=== PATIENT | male | born 1965 | race Two or more races ===

== ENCOUNTER 2025-05-13 18:27 | Emergency (ER) | payer MEDICAID, OTHER ==
[~2025-05-13] VITALS: Ht 175.3 cm; Wt 100.0 kg
[2025-05-13 18:39] VITALS: BP 136/67; PULSE 102; RESP 16; TEMP 98.2; O2SAT 95
--- NOTE | 2025-05-13 19:04 | DVH ---
CHEST RADIOGRAPH Indication: extremities swelling Technique: Single frontal view of the chest was obtained Comparison: No prior studies for comparison FINDINGS: Lines and Tubes: None Lungs: No focal consolidation. Pleura: No effusion. No pneumothorax. Cardiomediastinal contours: Unremarkable Bones: No acute osseous abnormality. IMPRESSION: 1. No acute cardiopulmonary disease. 2. No prior studies for comparison
--- NOTE | 2025-05-13 19:09 | ED.PDOC ---
HPI Comments lea: b/l leg swelling. etoh 60 y/o homeless M is [id number] ambulance with c/c of bilateral feet and leg swelling. Patient is a poor historian. He has had symptoms for over the past 3 months. Patient has associated difficulty walking. 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 Patient does not take any medications, currently, or remembers his entire medical history. Patient denied having any shortness of breath, chest pain, leg or feet pain, or further acute symptoms. HPI: Poor Historian. 60-year-old male presents to emergency depart for evaluation of bilateral feet/leg swelling for the last three months. Patient states the swelling is making it difficult for him to walk. Patient is homeless. Patient states having history of hepatitis-C and some type of liver kidney failure from alcohol abuse. He does not know any of his medical conditions and does not take any other medications. Patient is brought in by ambulance from the street. Initial vital signs was blood pressure 142/79, heart rate 106, respirations 20, pulse ox 96% room air. EMS stated that he told him that the swelling has been going on for at least two years. Past Medical History: Alcohol abuse, Hepatitis C, Unspecified kidney/liver disease Past Surgical History: Craniotomy for head injury REVIEW OF SYSTEMS: CONSTITUTIONAL: Denies acute: fever, diaphoresis, chills, generalized weakness. HEAD: Denies acute: headache, photophobia Eyes: Denies acute: Double vision, vision loss, eye pain, eye discharge. EARS: Denies acute: tinnitus, hearing loss, ear discharge, ear pain, THROAT: Denies acute: sore throat, swelling, difficulty swallowing , pain with swallowing, change in voice. NECK: Denies acute: neck pain, neck swelling, stiff neck. HEART: Denies acute : chest pain, palpitations, LUNGS: Denies acute: SOB, wheezing, cough, hemoptysis ABDOMEN: Denies acute: abdominal pain, Nausea, Vomiting, diarrhea, melena , hematemesis, hematochezia SKIN: Denies acute: rash, redness, lesions, itchiness. EXTREMITIES: Denies acute: calf pain, numbness, tingling, weakness, Denies acute: Low back pain. Neuro: Denies acute: focal neurological deficit, motor or sensory focal neurological deficit, tremors, seizure like activity, confusion, dizziness, change in mental status, loss of bowel or bladder function, cauda equina like symptoms. : Denies acute: dysuria, hematuria, flank pain, increase in urinary frequency. PSYCH: Denies acute: hallucination, suicidal ideation, homicidal ideation. PHYSICAL EXAM: General: -----mild---acute distress, awake and alert. Head: normocephalic, atraumatic. Neck: supple, trachea is midline, no swelling. Throat: Normal phonation. Eyes:, no erythema, no purulent discharge, no proptosis, no icterus. Heart: regular tachycardic, no significant murmur appreciated. Lungs: no apparent respiratory distress, Able to speak in full sentences. No wheezing, no rhonchi, no crackles. No stridors Clear to auscultation bilaterally. Abdomen: non tender to palpation, non distended, soft, no guarding, no rebound, + bowel sounds. Obese Neuro: Awake, Alert, oriented to name, self, situation, follows commands GCS=15. Speech is normal. Skin: no petechia, no purpura, no cyanosis, non-pale, not jaundice. Lower extremities: --2/4 b/l- Pitting edema no deformity, no focal swelling, mild b/l calf TTP. Makes eye contact. moves all four extremities. Face: no apparent facial droop. Pedal pulses are palpable. ED COURSE: DISCLAIMER: This medical document was created using an electronic medical record system with voice recognition software and computerized dictation system. Although this document has been carefully reviewed, there might still be some phonetic and typographical errors. Occasional wrong-word or "sound-alike" substitutions may have occurred due to the inherent limitations of voice recognition software. These areas are purely typographical due to imperfections of the software programs and do not reflect any compromise in the patient's medical care. Please read the chart carefully and recognize, using context, where these substitutions have occurred. Chief Complaint: Lower Extremity Time Seen by MD: 18:30 Reviewed Notes: Nurses Notes, Medications, Allergies Allergies: Coded Allergies: NO KNOWN ALLERGIES (Unverified , 05/13/25) Home Meds Active Scripts Furosemide (Lasix) 20 Mg Tb, 20 MG GT DAILY for 7 Days, #7 TAB Prov:HARDEEP PETERSON DO 05/13/25 Information Source: Patient Mode of Arrival: EMS Severity: Moderate Timing: Hours Duration: Since onset Prehospital treatment: None Social History Smoker: Non-Smoker Alcohol: Denies ETOH Use Drugs: Denies Drug Use Lives In: Home Was a procedure done? Was a procedure done?: No CP Differential Dx Differential Diagnosis: N/A Comment Leg swelling Ddx include but not limited to DVT, ischemic limb, pitting edema, volume overload, CHF, cellulitis, hematoma, compartment syndrome, dependent edema, venous stasis. Necrotizing fasciitis, abscess, infestation. X-Ray, Labs, Meds, VS Vital Signs Date Time Temp Pulse Resp B/P (MAP) Pulse Ox O2 Delivery O2 Flow Rate FiO2 05/14/25 01:59 Room Air* 0 21 05/13/25 18:39 98.2 102 16 136/67 95 98.2 Lab Test 05/13/25 21:02 05/13/25 18:59 Range/Units Lactic Acid Level 2.3 *H 2.8 *H 0.4-2.0 mmol/L White Blood Count 6.2 4.4-10.8 10^3/uL Red Blood Count 4.21 L 4.5-5.90 10^6/uL Hemoglobin 10.0 L 13.5-17.5 g/dL Hematocrit 31.1 L 41.0-53.0 % Mean Corpuscular Volume 73.9 L 80.0-100.0 fL Mean Corpuscular Hemoglobin 23.7 L 28.0-32.0 pg Mean Corpuscular Hemoglobin Concent 32.1 32.0-36.0 g/dL Red Cell Distribution Width 19.0 H 11.8-14.3 % Platelet Count 210 140-450 10^3/uL Mean Platelet Volume 7.2 6.9-10.8 fL Neutrophils (%) (Auto) 58.6 37.0-80.0 % Lymphocytes (%) (Auto) 25.7 10.0-50.0 % Monocytes (%) (Auto) 10.2 0.0-12.0 % Eosinophils (%) (Auto) 4.7 0.0-7.0 % Basophils (%) (Auto) 0.8 0.0-2.0 % Neutrophils # (Auto) 3.6 1.6-8.6 10 ^3/uL Lymphocytes # (Auto) 1.6 0.4-5.4 10 ^3/uL Monocytes # (Auto) 0.6 0-1.3 10 ^3/uL Eosinophils # (Auto) 0.3 0-0.8 10 ^3/uL Basophils # (Auto) 0.1 0-0.2 10 ^3/uL Nucleated Red Blood Cells 0.0 % Sodium Level 145 136-145 mmol/L Potassium Level 3.7 3.5-5.1 mmol/L Chloride Level 110 H 98-107 mmol/L Carbon Dioxide Level 23 20-31 mmol/L Anion Gap 12 5-15 Blood Urea Nitrogen 8 L 9-23 mg/dL Creatinine 0.83 0.700-1.30 mg/dL Glomerular Filtration Rate Calc 100 >90 mL/min BUN/Creatinine Ratio 9.6 L 10.0-20.0 Serum Glucose 190 H 74-106 mg/dL Calcium Level 7.8 L 8.7-10.4 mg/dL Total Bilirubin 0.4 0.2-1.0 mg/dL Aspartate Amino Transferase (AST) 78 H 13-40 U/L Alanine Aminotransferase (ALT) 62 H 7-40 U/L Alkaline Phosphatase 286 H 46-116 U/L Troponin I High Sensitivity 11 </=54 ng/L C-Reactive Protein High Sensitivity 0.19 <1.0 mg/dL B-Type Natriuretic Peptide 77.35 0-100 pg/mL Total Protein 7.0 5.7-8.2 g/dL Albumin 3.4 3.2-4.8 g/dL [place] [address] Ph: [phone] DIAGNOSTIC IMAGING Diagnostic Imaging Report : [id number] Signed PATIENT: ROBB LEA ACCT: [id number] UNIT: [id number] : 1965 LOC: ER ROOM / BED: / AGE / SEX: 60 / M ADM STATUS: REG ER SERVICE 55 ORDERING PHYSICIAN: HARDEEP PETERSON DO PROCEDURE(s): BLDVT - BiLat Lower DVT REASON: swelling ORDER NUMBER(s): [id number], ACCESSION NUMBER(s): [id number] CLINICAL HISTORY: swelling TECHNIQUE: Color and duplex doppler imagine of the bilateral lower extremity veins was performed. Vessel compression and augmentation if possible was also performed. COMPARISON: R ANKLE COMPLETE on DOS: 04/10/22 FINDINGS: Right Lower Extremity: Right common femoral vein: Normal compressibility and flow. Right superficial femoral vein: Normal compressibility and flow. Right popliteal vein: Normal compressibility and flow. Proximal calf veins demonstrate flow. Left Lower Extremity: Left common femoral vein: Normal compressibility and flow. Left superficial femoral vein: Normal compressibility and flow. Left popliteal vein: Normal compressibility and flow. Proximal calf veins demonstrate flow. IMPRESSION: NO SONOGRAPHIC EVIDENCE FOR DEEP VENOUS THROMBOSIS IN THE BILATERAL LOWER EXTREMITY VEINS. ATED BY: JOHNNA ATKINS MD DICTATED DATE/TIME: 05/13/252039 SIGNED BY: JOHNNA ATKINS MD SIGNED DATE/TIME: 05/13/252039 CC: [place] [address] Ph: [phone] DIAGNOSTIC IMAGING Diagnostic Imaging Report : [id number] Signed PATIENT: ROBB LEA ACCT: [id number] UNIT: [id number] : 1965 LOC: ER ROOM / BED: / AGE / SEX: 60 / M ADM STATUS: REG ER SERVICE 1831 ORDERING PHYSICIAN: HARDEEP PETERSON DO PROCEDURE(s): CXRP - CHEST PORTABLE REASON: extremities swelling ORDER NUMBER(s): [id number], ACCESSION NUMBER(s): [id number] CHEST RADIOGRAPH Indication: extremities swelling Technique: Single frontal view of the chest was obtained Comparison: No prior studies for comparison FINDINGS: Lines and Tubes: None Lungs: No focal consolidation. Pleura: No effusion. No pneumothorax. Cardiomediastinal contours: Unremarkable Bones: No acute osseous abnormality. IMPRESSION: 1. No acute cardiopulmonary disease. 2. No prior studies for comparison ATED BY: GREG ZIMMER Jr., DO DICTATED DATE/TIME: 05/13/251900 SIGNED BY: GREG ZIMMER Jr., SIGNED DATE/TIME: 05/13/251900 CC: Time of 1ST Reevaluation: 19:00 Reevaluation 1ST: Unchanged Patient Education/Counseling: Diagnosis, Treatment Family Education/Counseling: No Family Present Comments MDM: patient presented with the above HPI.--chronic-bilateral leg edema---workup was initiated. patient was found with the above mentioned diagnosis. the following medications were ordered: please refer to order lists of meds and tests obtained by myself Dr. Peterson. Patient ED course and VS have been stabilized. Patient has been reassessed in the ED and remained in a stable condition. Pertinent incidental findings were discussed with the patient and/or family. Patient/family voices understanding and is agreeable with plan. Patient has been observed in the ED adequate length of time to insure improvem ent/stability. Escalation of care considered: Consideration of escalation to observation or admission Patient's findings are chronic based on history. Patient has no associated respiratory symptoms. Patient was given some Lasix. Patient was DISCHARGED home in a stable condition. All the reports of any imaging studies that were ordered by myself were reviewed by myself. SEPSIS Sepsis Screen Date sepsis recognized/suspect: May 13, 2025 Time Sepsis recognized/suspect: 1837 Recent Procedure: No On Antibiotic Therapy: No Respiratory Rate >20: No Heart Rate >90: Yes Temp<36 C (96.8 F) or >38.3 C: No SBP <90 or MAP <65 mmHG: No New Acute Mental Status Change: No Is the patient on CPAP, BIPAP,: No Physician Orders [employer] (05/13/25 ) Urinalysis (05/13/25 18:31) Electrocardigram (05/13/25 18:31) Chest Portable (05/13/25 18:31) Bilat Lower Dvt (05/13/25 19:56) Vital Signs Date Time Temp Pulse Resp B/P (MAP) Pulse Ox O2 Delivery O2 Flow Rate FiO2 05/14/25 01:59 Room Air* 0 21 05/13/25 18:39 98.2 102 16 136/67 95 98.2 Laboratory Tests Test 05/13/25 18:59 05/13/25 21:02 Lactic Acid Level 2.8 mmol/L (0.4-2.0) *H 2.3 mmol/L (0.4-2.0) *H White Blood Count 6.2 10^3/uL (4.4-10.8) Departure 1 Departure Time of Disposition: 22:27 Impression: Primary Impression: Bilateral leg edema Disposition: HOME / SELF CARE / HOMELESS Condition: Stable Additional Instructions: Additional instructions: Please read all instructions provided in this packet carefully. You MUST follow-up with your primary care/family doctor in 1 to 2 days. If you are unable to see your primary care/family doctor, please return to our emergency room for re-assessment and re-evaluation in 1 to 2 days. Return to the emergency room here in our facility or to the nearest ER [facility] if your symptoms change or worsen. CONSULTATIONS: you MUST Follow-up for consultation as soon as possible with: -cardiology and vascular medicine in 1-2 days. Please call for appointment. You MUST call the consultants office yourself to make an appointment. You may need to arrange that through your insurance and/or your primary/family doctor. If you are unable to see the software sales consultant in 1 to 2 days, you must return to our emergency room (or any other ER of your choice) for re-assessment and re- evaluation. Adequate fluid hydration. Keep legs elevated. Wear compression stockings. Although you have been discharged from the Emergency Department, this does not mean that you have a "clean bill of health". No definitive diagnosis for your symptoms has been made today. It is possible that you are in the process of developing a serious illness. This is why you must return to the ED without fail if any new or worsening symptoms develop. Below is a copy of your radiological report for follow up: [address] [address] Ph: [phone] DIAGNOSTIC IMAGING Diagnostic Imaging Report : [id number] Signed PATIENT: ROBB LEA ACCT: [id number] UNIT: [id number] : 1965 LOC: ER ROOM / BED: / AGE / SEX: 60 / M ADM STATUS: REG ER SERVICE 55 ORDERING PHYSICIAN: HARDEEP PETERSON DO PROCEDURE(s): BLDVT - BiLat Lower DVT REASON: swelling ORDER NUMBER(s): [id number], ACCESSION NUMBER(s): [id number] CLINICAL HISTORY: swelling TECHNIQUE: Color and duplex doppler imagine of the bilateral lower extremity veins was performed. Vessel compression and augmentation if possible was also performed. COMPARISON: R ANKLE COMPLETE on DOS: 04/10/22 FINDINGS: Right Lower Extremity: Right common femoral vein: Normal compressibility and flow. Right superficial femoral vein: Normal compressibility and flow. Right popliteal vein: Normal compressibility and flow. Proximal calf veins demonstrate flow. Left Lower Extremity: Left common femoral vein: Normal compressibility and flow. Left superficial femoral vein: Normal compressibility and flow. Left popliteal vein: Normal compressibility and flow. Proximal calf veins demonstrate flow. IMPRESSION: NO SONOGRAPHIC EVIDENCE FOR DEEP VENOUS THROMBOSIS IN THE BILATERAL LOWER EXTREMITY VEINS. ATED BY: JOHNNA ATKINS MD DICTATED DATE/TIME: 05/13/252039 SIGNED BY: JOHNNA ATKINS MD SIGNED DATE/TIME: 05/13/252039 CC: e-Prescriptions Furosemide (Lasix) 20 Mg Tb 20 MG GT DAILY for 7 Days, #7 TAB Prov: HARDEEP PETERSON DO 05/13/25 Discharged With: Self Critical Care Note Critical Care Time?: No Stability Stability form required: No Heart Score Heart Score: Heart Score Response (Comments) Value History Slightly Suspicious 0 EKG Normal 0 Age 45-64 1 Risk Factors N/A 0 Troponin Normal limit 0 Total 1 I personally scribed for HARDEEP PETERSON DO ([email or web address]) on 05/13/25 at 19:09. Electronically submitted by Arnulfo Mayberry ([email or web address]). I personally scribed for HARDEEP PETERSON DO ([email or web address]) on 05/13/25 at 20:09. Electronically submitted by Arnulfo Mayberry ([email or web address]). I personally scribed for HARDEEP PETERSON DO ([email or web address]) on 05/13/25 at 21:04. Electronically submitted by Arnulfo Mayberry ([email or web address]). I personally scribed for HARDEEP PETERSON DO ([email or web address]) on 05/13/25 at 22:34. Electronically submitted by Arnulfo Mayberry ([email or web address]). I personally scribed for HARDEEP PETERSON DO ([email or web address]) on 05/14/25 at 05:28. Electronically submitted by Arnulfo Mayberry ([email or web address]). HARDEEP PETERSON DO May 13, 2025 19:09
[2025-05-13 19:33] LABS: Hematocrit 31.1 % (41.0-53.0); Hemoglobin 10.0 g/dL (13.5-17.5); Mean Corpuscular Hemoglobin 23.7 pg (28.0-32.0); Mean Corpuscular Volume 73.9 fL (80.0-100.0); Nucleated Red Blood Cells % 0.0 %
[2025-05-13 19:48] LABS: Albumin 3.4 g/dL (3.2-4.8); Anion Gap 12 (5-15); BUN/Creatinine Ratio 9.6 (10.0-20.0); Carbon Dioxide 23 mmol/L (20-31); Potassium 3.7 mmol/L (3.5-5.1); Sodium 145 mmol/L (136-145); Total Protein 7.0 g/dL (5.7-8.2)
[2025-05-13 19:49] LABS: Alanine Aminotransferase 62 U/L (7-40); Alkaline Phosphatase 286 U/L (46-116); Bilirubin, Total 0.4 mg/dL (0.2-1.0); Blood Urea Nitrogen 8 mg/dL (9-23); Calcium 7.8 mg/dL (8.7-10.4); Chloride 110 mmol/L (98-107); Glucose 190 mg/dL (74-106)
[2025-05-13 19:54] LABS: Lactic Acid w/Reflex 2.8 mmol/L (0.4-2.0)
--- NOTE | 2025-05-13 20:42 | DVH ---
CLINICAL HISTORY: swelling TECHNIQUE: Color and duplex doppler imagine of the bilateral lower extremity veins was performed. Ves elizabeth compression and augmentation if possible was also performed. COMPARISON: R ANKLE COMPLETE on DOS: 04/10/22 FINDINGS: Right Lower Extremity: Right common femoral vein: Normal compressibility and flow. Right superficial femoral vein: Normal compressibility and flow. Right popliteal vein: Normal compressibility and flow. Proximal calf veins demonstrate flow. Left Lower Extremity: Left common femoral vein: Normal compressibility and flow. Left superficial femoral vein: Normal compressibility and flow. Left popliteal vein: Normal compressibility and flow. Proximal calf veins demonstrate flow. IMPRESSION: NO SONOGRAPHIC EVIDENCE FOR DEEP VENOUS THROMBOSIS IN THE BILATERAL LOWER EXTREMITY VEINS.
[2025-05-13] MEDS ORDERED: FURO1TAB33 GT (22:29)
[2025-05-14] MEDS: FUROSEMIDE 40 MG/4 ML VIAL IV ONE (01:58)
== END 2025-05-13 22:29 | disposition home or self-care (01) ==
LOC: EDBD 18:27 → ER 18:27
DX: R60.0 Localized edema (principal); R26.2 Difficulty in walking, not elsewhere classified; Z86.19 Personal history of other infectious and parasitic diseases; Z98.890 Other specified postprocedural states
CPT/HCPCS: 36415; 71045; 80053; 83605; 83880; 84484; 85025; 86141; 93970